=== PATIENT | female | born 1955 | race Caucasian/White ===

== ENCOUNTER → 2017-03-24 | Outpatient (CLI) | payer OTHER ==
[~2017-03-24] MED LIST: CALCIUM600 MG PO; DELTASONE10 MG PO; VITAMIN D5000 UNIT PO
== END | disposition disaster alternative care site (69) ==
LOC: GBCOE 11:14
DX: Z12.31 Encounter for screening mammogram for malignant neoplasm of breast (principal); Z78.0 Asymptomatic menopausal state; M85.88 Other specified disorders of bone density and structure, other site
CPT/HCPCS: G0202

== ENCOUNTER → 2017-04-06 | Day surgery (SDC) | payer OTHER ==
[~2017-04-06] VITALS: Ht 162.6 cm; Wt 65.4 kg
== END ==
LOC: GPOC 04-02 13:00 → GEND 08:23 → GPOC 08:30
PROC: 0DJD8ZZ Inspection of Lower Intestinal Tract, Via Natural or Artificial Opening Endoscopic (ICD-10-PCS; principal; 2017-04-06)
DX: Z12.11 Encounter for screening for malignant neoplasm of colon (principal); K64.4 Residual hemorrhoidal skin tags; Z90.710 Acquired absence of both cervix and uterus; Z98.890 Other specified postprocedural states; Z79.899 Other long term (current) drug therapy; Z80.9 Family history of malignant neoplasm, unspecified
CPT/HCPCS: J1100; J2001; J2405; J7030